=== PATIENT | male | born 1985 | race African-American/Black ===

== ENCOUNTER 2018-01-08 02:17 | Emergency (ER) | payer MEDICAID, SELFPAY ==
[2018-01-08 02:19] VITALS: BP 106/76; PULSE 90; RESP 18; TEMP 36.3; O2SAT 97; BMI 20.7
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
[2018-01-08] MEDS: Ziprasidone IM 20 MG/ML VIAL IM (02:40)
[2018-01-08 03:21] LABS: Bedside Glucose 109 mg/dL (70-110)
[2018-01-08 03:34] LABS: Absolute Lymphocyte Count 2.68 X10^3/ul (0.83-4.51); Absolute Neutrophil Count 3.4 X10^3/uL (2.0-7.7); Basophil# 0.03 X10^3/uL; Basophil% 0.5 % (0-1); Eosinophil# 0.03 X10^3/uL; Eosinophils% 0.5 % (0-5); Hematocrit 37.5 % (40-54); Hemoglobin 13.2 g/dl (13.0-16.5); Lymphocyte # 2.68 X10^3/ul (4.0); Lymphocyte % 40.5 % (19-41); Mean Corp Hgb Conc 35.2 g/gl (32-36); Mean Corpuscular Hgb 31.7 pg (27.0-32.0); Mean Corpuscular Volume 90.1 fL (80-94); Mean Platelet Vol. 10.1 fl (6.2-12.0); Monocyte# 0.41 X10^3/uL; Monocyte% 6.2 % (0-10); Neutrophil # 3.44 X10^3/uL (2.7-7.7); Platelet Count 249 K/mm3 (150-450); RBC Distribution Width CV 12.7 % (11.6-14.6); RBC Distribution Width SD 41.5 fl (35.1-43.9); Red Blood Count 4.16 M/mm3 (4.6-6.2); White Blood Count 6.6 K/mm3 (4.4-11.0)
[2018-01-08 03:36] LABS: POSITIVE COUNT NO; POSITIVE DIFFERENTIAL NO; POSITIVE MORPHOLOGY NO
[2018-01-08 03:37] LABS: Anion Gap 9 (5-15); BUN 9 mg/dL (7-18); BUN/Creat Ratio 9.1 RATIO (10-20); Calcium,Total 8.4 mg/dL (8.5-10.1); Chloride 107 mmol/L (98-107); Creatinine, Serum 0.99 mg/dL (0.70-1.30); EST Glomerular Filtration Rate 94 mL/min (>60); Est Glom Filt Rate - Afr Amer 114 mL/min (>60); Estimated Creatinine Clearance 98.61 ml/min; Glucose 106 mg/dL (74-106); Potassium 3.3 mmol/L (3.5-5.1); Prothrombin Time (Protime)PT. 12.7 SECONDS (11.7-14.9); Sodium Level 145 mmol/L (136-145)
[2018-01-08 03:38] LABS: Partial Thromboplast Time 25.6 Seconds (24.1-36.2)
[2018-01-08] MEDS: 0.9% Normal Saline 1,000 ML 999 ML IV (04:44)
[2018-01-08 05:04] VITALS: PULSE 90; RESP 13; O2SAT 97
--- NOTE | 2018-01-08 06:07 | ED.RN ---
lab called with critical lab results. etoh level 307. Dr. Taylor made aware. no new orders at this time
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
--- NOTE | 2018-01-08 10:59 | ED.RN ---
ATTEMPTED TO WAKE PT, PT WAS UNABLE TO BE AWAKENED. WILL CONTINUE TO MONITOR. RESPIRATORY RATE AND QUALITY APPEAR WNL. CALL LIGHT IN REACH, BED RAILS UP X2, BED IN LOWEST POSITION FOR SAFETY.
== END 2018-01-08 12:00 | disposition home or self-care (01) ==
PROVIDERS: Emergency Provider Emergency Medicine; Family Provider Family Medicine; PCP Family Medicine
DX: S10.93XA Contusion of unspecified part of neck, initial encounter (principal); F10.129 Alcohol abuse with intoxication, unspecified; Y90.8 Blood alcohol level of 240 mg/100 ml or more; Y04.2XXA Assault by strike against or bumped into by another person, initial encounter; Y93.89 Activity, other specified; Y92.89 Other specified places as the place of occurrence of the external cause; Y99.8 Other external cause status
CPT/HCPCS: 70360; 70491; 71045; 80048; 80320; 82962; 85025; 85610; 85730; 93005; 96372; 99284; J7030; A4216; G0480; J3486

== ENCOUNTER 2021-12-17 15:09 | Emergency (ER) | payer MEDICAID, SELFPAY ==
[2021-12-17 15:10] VITALS: BP 144/96; PULSE 79; RESP 15; TEMP 36.4; O2SAT 96
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
[2021-12-17] MEDS: Ondansetron ODT 4 MG Tablet PO (16:39)
[2021-12-17] MEDS: oxyCODONE 5 MG Tablet PO (16:39)
[2021-12-17] MEDS: Ibuprofen 600 MG Tablet PO (16:40)
[2021-12-17 16:48] VITALS: RESP 18
== END 2021-12-17 16:49 | disposition home or self-care (01) ==
PROVIDERS: Emergency Provider Emergency Medicine; PCP Family Medicine; Visit Provider Emergency Medicine
DX: S02.2XXA Fracture of nasal bones, initial encounter for closed fracture (principal); S02.31XA Fracture of orbital floor, right side, initial encounter for closed fracture; S09.90XA Unspecified injury of head, initial encounter; R51.9 Headache, unspecified; H11.31 Conjunctival hemorrhage, right eye; Z97.3 Presence of spectacles and contact lenses; Y04.8XXA Assault by other bodily force, initial encounter; W01.198A Fall on same level from slipping, tripping and stumbling with subsequent striking against other object, initial encounter
CPT/HCPCS: 70450; 70486; 72125; 99283

== ENCOUNTER 2023-06-16 17:37 | Emergency (ER) | payer SELFPAY ==
[2023-06-16 17:37] VITALS: BP 100/70; PULSE 86; RESP 18; TEMP 36.7; O2SAT 97; BMI 18.6
--- NOTE | 2023-06-16 17:55 | EDS_ITS ---
HPI <SAVAGE Gao - Last Filed: 06/16/23 19:50> History of Present Illness Chief Complaint: Cough Narrative Narrative: Patient is a 38-year-old male with no significant medical history presents to the emergency department with multiple complaints. Patient states for the last 8 days, he has been sick, he complains of coughing, body aches, intermittent fever and chills. Patient was tested for COVID, influenza as well as RSV which were negative. Patient states that he is getting worse and he is here for evaluation. He also states that on 30 May, he had unprotected sex and states that he did have some intermittent pain with urination. And he would like that checked as well. He denies any nausea or vomiting however does have some anorexia. PFSH <SAVAGE Gao - Last Filed: 06/16/23 19:50> FORMERLY [facility], [facility] Medical History no medical history Home Medications albuterol sulfate 90 mcg/actuation breath activated powder inhaler 2 inh inhalation Q6H PRN shortness of breath #1 ea 06/16/23 [Rx Last Taken Unknown] doxycycline hyclate 100 mg capsule 100 mg PO DAILY #14 caps 06/16/23 [Rx Last Taken Unknown] Allergy/AdvReac Type Severity Reaction Status Date / Time No Known Allergies Allergy Verified 06/16/23 17:37 Surgical History no surgical history Social History Smoking Status: Never smoker ROS <SAVAGE Gao - Last Filed: 06/16/23 19:50> ROS ED ROS Narrative Constitutional: Negative for weight loss, weakness. Positive fever and chills Eyes: Negative for vision loss, vision change, double vision ENT: Negative for any sore throat, ear pain, congestion Cardiovascular: Negative for any chest pain, tightness, palpitations Respiratory: Negative for any sputum production, hemoptysis, dyspnea on exertion, orthopnea. Positive cough, dyspnea Gastrointestinal: Negative for any abdominal pain, nausea, vomiting, diarrhea, constipation, blood in stool, blood in vomit : Negative for any urinary frequency, retention, blood in urine. Positive for dysuria Muscle skeletal: Negative for any arthralgias, neck pain. Positive for myalgias, back pain Neurological: Negative for any headache, syncope, paresthesias, dizziness Skin: Negative for any rashes, lumps, itching, abrasions, lacerations Psychiatric: Negative for any depression, anxiety, stress, suicidal ideation, homicidal ideation Hematologic: Negative for any easy bruising, excessive bruising, easy bleeding Allergies: Negative for any eczema, hives, rash EXAM <SAVAGE Gao - Last Filed: 06/16/23 19:50> Physical Exam Narrative Exam Narrative: Vital signs reviewed. HEET: Head normocephalic atraumatic, TMs clear bilaterally. Posterior pharynx is clear, moist mucous membranes. Nares clear bilaterally. Neck: Supple with no lymphadenopathy or tenderness. No signs of meningismus. Cardiac: Regular rate and rhythm no murmurs gallops or rubs, equal peripheral pulses bilaterally. Respiratory: Positive for right lower lobe crackles. No chest tenderness. Abdomen: Soft, nontender, nondistended. No abdominal bruit or pulsatile masses. No hepatosplenomegaly Extremities: No peripheral edema, no signs of gross trauma or deformity. Active full range of motion of all extremities. Neuro: Cranial nerves II through XII intact, no focal neurological deficits. Skin: Clean dry and intact with no rash, purpura, petechiae, vesicles or pustules. Backs/flank: No CVA tenderness, no midline spinal tenderness, no deformity. Psych: Normal mood and affect. No SI, HI or acute psychosis. : There is no lesions to the penile shaft, has no drainage from the penile meatus. Testicle exam was unremarkable. Const Vital Signs: 06/16/23 17:37 06/16/23 18:18 06/16/23 18:21 Temperature 98.1 F Temperature Source Temporal Pulse Rate 86 101 H Respiratory Rate 18 20 H Respiratory Pattern Normal Normal Blood Pressure 100/70 Blood Pressure Mean 80 Pulse Ox 97 Oxygen Delivery Method Room Air Positive well nourished and well developed General Appearance ED: well developed <Dr. Miguel Prado MD - Last Filed: 06/16/23 18:39> Physical Exam Const Vital Signs: 06/16/23 17:37 06/16/23 18:18 06/16/23 18:21 Temperature 98.1 F Temperature Source Temporal Pulse Rate 86 101 H Respiratory Rate 18 20 H Respiratory Pattern Normal Normal Blood Pressure 100/70 Blood Pressure Mean 80 Pulse Ox 97 Oxygen Delivery Method Room Air MDM <SAVAGE Gao - Last Filed: 06/16/23 19:50> MDM Lab Data Labs: Laboratory Results - last 24 hr 06/16/23 18:55 Urine Color Yellow Urine Clarity Clear Urine pH 6.5 Ur Specific [place] 1.015 Urine Protein 30 H Urine Glucose (UA) Normal Urine Ketones 5 H Urine Occult Blood Negative Urine Nitrite Negative Urine Bilirubin 1 H Urine Urobilinogen 1 H Ur Leukocyte Esterase 25 H Urine RBC 0 SEEN Urine WBC 0 SEEN Ur Squamous Epith Cells 0 SEEN Urine Bacteria 0 SEEN Urine Mucus 0 SEEN Radiography Diagnostic Testing: Clinical Impression(s) from Imaging Studies Chest X-Ray 06/16/23 18:45 IMPRESSION: Normal x-ray examination of the chest. Electronically Signed: Louis Escudero MD at 19:10 EST , Treatment and Re-Evaluation :: Patient appears to be in no obvious distress, vital signs are stable. Presenting to the emerged part for cough, congestion, generalized bodyaches. Patient was checked for RSV, COVID, influenza that was negative. Differential diagnose includes community-acquired pneumonia, other viral-like illness, reactive airway disease. Patient has no history of asthma. He does smoke 1/2 pack/day. Patient received a two-view chest x-ray as well as breathing treatments. All radiologic examinations were read, reviewed by the emergency department attending. From these reads, a plan of care will be put in place. Patient will receive GC/chlamydia PCR via urine. All radiologic examinations were read, reviewed by the emergency department attending. From these reads, a plan of care will be put in place. Patient's chest x-ray two-view showed normal x-ray of the chest. Patient's urinalysis was negative for any infection. Patient did have a GC/chlamydia sent PCR. Patient did have relief of symptoms with breathing treatments. At this time, patient be treated for doxycycline twice a day for 7 days, this will cover both respiratory infection as well as GC chlamydia, patient also receive 500 mg IM Rocephin. Patient received a call for any positive result. Patient is happy with the plan of care, patient was begin albuterol inhaler for prescription. Instructed return for any worsening symptoms. <Dr. Miguel Prado MD - Last Filed: 06/16/23 18:39> MDM MDM Narrative Medical decision making narrative: I have personally performed a face to face assessment of the patient and have reviewed the CHELLY Note. I performed a substantive portion of the visit including all aspects of the following. My carlin findings include: History: Patient presents with 2 complaints. Patient has been coughing and felt ill for about 8 days or so. He has a history of asthma. But he does not have an inhaler currently. He states he was wheezing more at the beginning and it is actually gotten better. Subjective fevers. He also complains of some burning with urination and sexual exposure unprotected about 2-2 and half weeks ago Exam: Frequent coughing. Dry. Mild wheeze. No rhonchi that I hear. Abdomen is benign. No active discharge. Medical Decision Making: Will be given a breathing treatment. Will send off chlamydia and GC. X-ray is pending. Lab Data Labs: Laboratory Results - last 24 hr 06/16/23 18:55 Urine Color Yellow Urine Clarity Clear Urine pH 6.5 Ur Specific [place] 1.015 Urine Protein 30 H Urine Glucose (UA) Normal Urine Ketones 5 H Urine Occult Blood Negative Urine Nitrite Negative Urine Bilirubin 1 H Urine Urobilinogen 1 H Ur Leukocyte Esterase 25 H Urine RBC 0 SEEN Urine WBC 0 SEEN Ur Squamous Epith Cells 0 SEEN Urine Bacteria 0 SEEN Urine Mucus 0 SEEN Radiography Diagnostic Testing: Clinical Impression(s) from Imaging Studies Chest X-Ray 06/16/23 18:45 IMPRESSION: Normal x-ray examination of the chest. Electronically Signed: Louis Escudero MD at 19:10 EST , Discharge Plan Triage Chief Complaint: Cough Other Complaint: Fever ED Midlevel Provider: Rigoberto Altamirano ED Provider: Miguel Prado Dx/Rx/DC Orders Clinical Impression: Exposure to STD, Bronchitis Instructions: ED Upper Resp Infec Abx Tx Prescriptions: New doxycycline hyclate 100 mg capsule 100 mg PO DAILY Qty: 14 0RF albuterol sulfate 90 mcg/actuation aerosol powdr breath activated 2 inh inhalation Q6H PRN (Reason: shortness of breath) Qty: 1 1RF Primary Care Provider: Gab Mandujano Referrals: Gab Mandujano MD [Primary Care Provider] - Activity Restrictions/Additional Instructions: Take antibiotics until finished. Use albuterol inhaler as needed. Disposition Disposition: Home, Self Care
--- OUTSIDE RECORDS SUMMARY | 2023-06-16 18:17 | XMS RPT_ITS | CCD ---
Author Name Unknown Address [address] [place] [address] Organization [facility] Care Team Providers Care Scanning Supervisor Name Role Phone Daisha Navarro Unavailable Unavailable Daisha Navarro Unavailable Unavailable Gab Mandujano MD Primary Care Provider [phone] Gab Madnujano MD Primary Care Provider [phone] Unavailable Primary Care Provider Unavailabl e Medications Current Medications Medication Drug Class(es) Dates Sig (Normalized) Sig (Original) albuterol 0.21 mg/ml inhalation solution (1 source) beta2-Adrenergic Agonist albuterol (ACCUNEB) 0.63 MG/3ML nebulizer solution Take 1 ampule by nebulization every 6 hours as needed for Wheezing 0 Active naproxen 500 mg oral tablet (1 source) Nonsteroidal Anti-inflammatory Drug Start: 05-14-2018 take 1 tablet by mouth twice daily at mealtime naproxen (NAPROSYN) 500 MG tablet Take 1 tablet by mouth 2 times daily (with meals) 14 tablet 0 05/14/2018 Active Completed/Discontinued Medications Medication Drug Class(es) Dates Sig (Normalized) Sig (Original) paraben-cetyl and stearyl alcohol-pro gl-SLS (CETAPHIL) topical cleanser (1 source) Start: 11-21-2020 paraben-cetyl and stearyl alcohol-pro gl-SLS (CETAPHIL) topical cleanser Indications: Allergic reaction, initial encounter Apply 1 application to affected area as needed. 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, uncomplicated] Onset: 02-19-2015 02-19-2015 Chronic Superficial injury; contusion (1 source) Contusion of right elbow; Translations: [Contusion of right elbow, initial encounter] Episodic Viral infection (1 source) Disease caused by 2019-nCoV; Translations: [COVID-19] Episodic Past or Other Problems Problem Classification Problem Date Documented Da te Episodic/Chronic Residual codes; unclassified (1 source) Tobacco user; Translations: [Tobacco use] Onset: 02-19-2015 02-19-2015 Episodic Residual codes; unclassified (1 source) Family history of ischemic heart disease; Translations: [Family history of ischemic heart disease and other diseases of the circulatory system] Onset: 02-19-2015 02-19-2015 Episodic Results Test Name Value Interpretation Reference Range Facil ity Vital Signs Date Time Vital Sign Value Performing Clinician Facility 06-13-2023 13:36-0500 Body temperature 100.9 [degF] Florencio Robles APRN.SPLITTER OPERATOR Work Phone: [facility] 06-13-2023 13:36-0500 Body weight 58.97 kg Florencio Robles APRN.SPLITTER OPERATOR Work Phone: [facility] 06-13-2023 13:36-0500 Diastolic blood pressure 86 mm[Hg] Florencio Robles APRN.SPLITTER OPERATOR Work Phone: [facility] 06-13-2023 13:36-0500 Heart rate 125 /min Florencio Robles APRN.SPLITTER OPERATOR Work Phone: [facility] 06-13-2023 13:36-0500 Respiratory rate 19 /min Florencio Robles APRN.SPLITTER OPERATOR Work Phone: [facility] 06-13-2023 13:36-0500 SaO2% (BldA) [Mass fraction] 91 % Florencio Robles APRN.SPLITTER OPERATOR Work Phone: [facility] 06-13-2023 13:36-0500 Systolic blood pressure 130 mm[Hg] Florencio Robles APRN.SPLITTER OPERATOR Work Phone: [facility] 05-24-2021 18:35-0500 Body height 177.8 cm Gab Mandujano MD Work Phone: [facility] 05-24-2021 18:34-0500 Body temperature 98.91 [degF] Gab Mandujano MD Work Phone: [employer] 05-24-2021 18:34-0500 Diastolic blood pressure 73 mm[Hg] Gab Mandujano MD Work Phone: [employer] 05-24-2021 18:34-0500 Heart rate 99 /min Gab Mandujano MD Work Phone: [employer] 05-24-2021 18:34-0500 Respiratory rate 18 /min Gab Mandujano MD Work Phone: [employer] 05-24-2021 18:34-0500 SaO2% (BldA) [Mass fraction] 97 % Gab Mandujano MD Work Phone: [employer] 05-24-2021 18:34-0500 Systolic blood pressure 122 mm[Hg] Gab Mandujano MD Work Phone: [employer] 12-03-2020 18:28-0400 Diastolic blood pressure 70 mm[Hg] Steve Adkins MD Work Phone: [facility] Work Phone: 12-03-2020 18:28-0400 Heart rate 80 /min Steve Adkins MD Work Phone: [facility] Work Phone: 12-03-2020 18:28-0400 Respiratory rate 14 /min Steve Adkins MD Work Phone: [facility] Work Phone: 12-03-2020 18:28-0400 SaO2% (BldA) [Mass fraction] 100 % Steve Adkins MD Work Phone: [facility] Work Phone: 12-03-2020 18:28-0400 Systolic blood pressure 120 mm[Hg] Steve Adkins MD Work Phone: [facility] Work Phone: 12-03-2020 16:54-0400 Body height 177.8 cm Steve Adkins MD Work Phone: [facility] Work Phone: 12-03-2020 16:54-0400 Body mass index (BMI) [Ratio] 19.8 kg/m2 Steve Adkins MD Work Phone: [facility] Work Phone: 12-03-2020 16:54-0400 Body temperature 98.8 [degF] Steve Adkins MD Work Phone: [facility] Work Phone: 12-03-2020 16:54-0400 Body weight 62.6 kg Steve Adkins MD Work Phone: [facility] Work Phone: Encounters Encounter Date Encounter Type Care Provider Facility Start: 06-13-2023 End: 06-13-2023 ambulatory Facility:[facility] Start: 06-13-2023 End: 06-13-2023 Patient encounter procedure Florencio Robles APRN.CNP Work Phone: [facility] Care Procedures Date Procedure Procedure Detail Performing Clinician Start: 05-24-2021 Iadna nos amplified probe tq each organism Wenceslao Olivo CNP Work Phone: Start: 12-03-2020 Radex elbow complete minimum 3 views Steve Adkins MD Work Phone: Start: 10-05-2011 Lipid 1996 panel - S black or Plasma Florencio Robles APRN.SPLITTER OPERATOR Work Phone: Plan of Treatment Date Care Activity Detail Author Start: 08-15-2028 Urine microalbumin profile DTaP,Tdap,Td Vaccine (5 - Td or Tdap) [facility] Start: 05-09-2023 Depression Assessment Depression Assessment [facility] Start: 01-07-2023 Influenza vaccination Influenza Vaccine (#1) [facility] Start: 2022 Lipid panel Lipid Screening [facility] Start: 01-07-2021 Influenza vaccination [facility] Start: 2006 Third diphtheria, tetanus and acellular pertussis (DTaP) vaccination TDAP (ADULT) [facility] Start: 2005 Hepatitis C screening Hepatitis C Screening [facility] Start: 2005 HIV screening HIV Screening [facility] Start: 2005 Tetanus vaccination TETANUS [facility] Start: 01-15-2005 Hepatitis B Vaccine (2 of 3 - 3-dose series) Hepatitis B Vaccine (2 of 3 - 3-dose series) [facility] Start: 2002 HIV screening HIV SCREENING DISCUSSION [facility] Start: 1999 COVID-19 Vaccine (1) COVID-19 Vaccine (1) [facility] Work Phone: Start: 1993 Pneumococcal vaccination Pneumococcal Vaccine (1 of 2 - PCV) [facility] Start: 1993 PNEUMOCOCCAL VACCINE SERIES (1 of 2 - PPSV23) PNEUMOCOCCAL VACCINE SERIES (1 of 2 - PPSV23) [facility] Start: 02-11-1992 COVID-19 VACCINE (1) COVID-19 VACCINE (1) [facility] Start: 1987 Covid-19 Vaccine (#1) Covid-19 Vaccine (#1) [facility] Start: 1987 Hepatitis C antibody, confirmatory test HEPATITIS C VIRUS SCREENING [facility] COVID & INFLUENZA A/ B & RSV NAAT, ROUTINE COVID & INFLUENZA A/B & RSV NAAT, ROUTINE Microbiology Routine Exposure to SARS-associated coronavirus 06/13/2023 1:59 PM [facility] Work Phone: NOVEL CORONAVIRUS NOVEL CORONAVI CHERRI Microbiology STAT 05/24/2021 6:58 PM [facility] Work Phone: Immunizations Immunization Date Immunization Notes Care Provider Barbra gonzalez 08-15-2018 tetanus toxoid, redu jennifer diphtheria toxoid, and acellular pertussis vaccine, adsorbed Florencio Robles PERSONAL TRAINER.SPLITTER OPERATOR Work Phone: [facility] 12-18-2004 hepatitis B vaccine, pediatric or pediatric/adolescent dosage Florencio PERSONAL TRAINER.SPLITTER OPERATOR Work Phone: [facility] 03-15-1991 diphtheria, tetanus toxoids and pertussis vaccine Florencio Robles PERSONAL TRAINER.SPLITTER OPERATOR Work Phone: [facility] 03-15-1991 haemophilus influenz ae type b vaccine, conjugate unspecified formulation Florencio Robles PERSONAL TRAINER.SPLITTER OPERATOR Work Phone: [facility] 03-15-1991 trivalent poliovirus vaccine, live, oral Florencio Robles PERSONAL TRAINER.SPLITTER OPERATOR Work Phone: [facility] 01-08-1988 diphtheria, tetanus toxoids and pertussis vaccine Florencio Robles PERSONAL TRAINER.SPLITTER OPERATOR Work Phone: [facility] 1987 diphtheria, tetanus toxoids and pertussis vaccine Florencio Robles PERSONAL TRAINER.SPLITTER OPERATOR Work Phone: [facility] Payers Date Payer Category Payer Unknown [employer] PPO POS [id number] 2021-Present [address] [place] [address] [id number] Unknown [id number] Social History Date Type Detail Facility Start: 12-03-2020 End: 06-13-2023 Tobacco smoking status NEIS Current every day smoker [facility] Work Phone: History of tobacco use Cigarette Smoker [facility] Start: 11-21-2020 End: 12-03-2020 Cigarettes smoked current (pack per day) - Reported [facility] Start: 12-03-2020 End: 06-13-2023 Tobacco use and exposure Never used [facility] Start: 12-03-2020 End: 06-13-2023 Alcohol intake Current drinker of alcohol (finding) [facility] Work Phone: Start: 10-20-2016 Alcohol Comment daily [facility] Work Phone: Start: 1985 Sex Assigned At Not on file [facility] Work Phone: Exposure to SARS-CoV -2 (event) Not sure [facility] Start: 02-15-2020 End: 11-21-2020 Alcohol Use Disorder Identification Test - Consumption [AUDIT-C] [facility] How often to you hav e a drink containing alcohol? 4 or more times a week [facility] Average Number of Drinks Not on file [facility] Progress note 06-13-2023 Note Date & Type Note Facility 06-13-2023 Note HNO ID: [id number] Author: FLORENCIO ROBLES APRN.SPLITTER OPERATOR Service: ? Author Type: Nurse Practitioner Type: Progress Notes Filed: 06/13/2023 14:26 Note Text: SUBJECTIVE: Sunny Wing is a 38 year old male. Who presents today with fatigue chills body aches cough sore throat n/v for I week. At home he felt warm. He has taken tylenol and cold medication. He just got back from [place] and was exposed to others who are sick. He would like covid flu and rsv testing. HPI No past medical history on file. No family history on file. Social History Tobacco Use Smoking status: Every Day Smokeless tobacco: Never Vaping Use Vaping Use: Never used Substance Use Topics Alcohol use: Yes Drug use: Yes Types: Cocaine, Crack Cocaine Comment: last used 3 days ago; clean 9 months prior ALLERGIES No Known Allergies Current Outpatient Medications Medication Sig Dispense Refill triamcinolone acetonide (KENALOG) 0.1 % cream Apply 1 application to affected area three times daily. (Patient not taking: Reported on 06/13/2023) 60 g 0 paraben-cetyl and stearyl alcohol-pro gl-SLS (CETAPHIL) topical cleanser Apply 1 application to affected area as needed. (Patient not taking: Reported on 06/13/2023) 118 mL 0 No current facility-administered medications for this visit. OBJECTIVE: BP 130/86 Pulse (!) 125 Temp (!) 38.3 ?C (100.9 ?F) Resp 19 Wt 59 kg (130 lb) SpO2 91% BMI 18.65 kg/m? ROS: All systems reviewed and are otherwise negative Constitutional: Well developed, well nourished, AANDO X3. ENT: Head is atraumatic, airway patent, mucosal membranes moist pink no exudate no AIRWORTHINESS SAFETY INSPECTOR [place] tm clear with no bulging or redness Neck: full ROM, no meningeal signs Cardiac: heart tones regular rate and rhythm Respiratory: lung CTA : no CVA tenderness MS: moves all extremities, no deformities noted Neuro: GCS 15 no focal deficits Skin: warm and dry with out rash, lesion or ecchymosis Psych: alert appropriate, speech clear Diagnostic testing: COVID, Influenza A, Influenza B and RSV testing performed and results will be complete in the next 24-72 hours. The patient will be notified of the results in My Chart. MDM: Patient presented to the [facility] for COVID, Influenza and RSV testing. Sunny Wing presents today with symptoms suspicious for likely viral upper respiratory infection. Differential includes bacterial pneumonia, sinusitis, allergic rhinitis, and bronchitis to name a few. At this time I do not suspect a serious underlying cardiopulmonary process. I considered, but think unlikely, dangerous causes of this patient?s symptoms to include ACS, CHF, COPD exacerbations, pneumonia or pneumothorax. Patient is nontoxic appearing and not in need of emergent medical intervention.Vital signs were evaluated and found to be within normal limits. We discussed the COVID results will be back in the next 1-2 days. In accordance with the CDC guidelines, Sunny Wing was instructed to quarantine, if indicated, based on symptoms and exposure. We have discussed over the counter medications to use for their symptoms. They may take Motrin and Tylenol for pain, body aches and fever. They will follow-up with their family doctor in the next 2-3 days. If symptoms worsen they will go straight to the emergency department for further evaluation and treatment. They voiced understanding of the plan of care and are in agreement. ASSESSMENT/PLAN: 1. Exposure to SARS-associated coronavirus - ICD9: V01.82, ICD10: Z20.828 - COVID AND INFLUENZA A/B AND RSV NAAT, ROUTINE Florencio Robles APRN.BROOKE [facility] History of Present illness Narrative 06-13-2023 Florencio Robles APRN.BROOKE - 06/13/2023 1:39 PM EST Note Date & Type Note Facility 06-13-2023 History of Presen t illness Narrative SUBJECTIVE: Sunny Wing is a 38 year old male. Who presents today with fatigue chills body aches cough sore throat n/v for I week. At home he felt warm. He has taken tylenol and cold medication. He just got back from [place] and was exposed to others who are sick. He would like covid flu and rsv testing. HPI No past medical history on file. No family history on file. Social History Tobacco Use Smoking status: Every Day Smokeless tobacco: Never Vaping Use Vaping Use: Never used Substance Use Topics Alcohol use: Yes Drug use: Yes Types: Cocaine, Crack Cocaine Comment: last used 3 days ago; clean 9 months prior ALLERGIES No Known Allergies Current Outpatient Medications Medication Sig Dispense Refill triamcinolone acetonide (KENALOG) 0.1 % cream Apply 1 application to affected area three times daily. (Patient not taking: Reported on 06/13/2023) 60 g 0 paraben-cetyl and stearyl alcohol-pro gl-SLS (CETAPHIL) topical cleanser Apply 1 application to affected area as needed. (Patient not taking: Reported on 06/13/2023) 118 mL 0 No current facility-administered medications for this visit. OBJECTIVE: BP 130/86 Pulse (!) 125 Temp (!) 38.3 C (100.9 F) Resp 19 Wt 59 kg (130 lb) SpO2 91% BMI 18.65 kg/m ROS: All systems reviewed and are otherwise negative Constitutional: Well developed, well nourished, A&O X3. ENT: Head is atraumatic, airway patent, mucosal membranes moist pink no exudate no AIRWORTHINESS SAFETY INSPECTOR [place] tm clear with no bulging or redness Neck: full ROM, no meningeal signs Cardiac: heart tones regular rate and rhythm Respiratory: lung CTA : no CVA tenderness MS: moves all extremities, no deformities noted Neuro: GCS 15 no focal deficits Skin: warm and dry with out rash, lesion or ecchymosis Psych: alert appropriate, speech clear Diagnostic testing: COVID, Influenza A, Influenza B and RSV testing performed and results will be complete in the next 24-72 hours. The patient will be notified of the results in My Chart. MDM: Patient presented to the [facility] for COVID, Influenza and RSV testing. Sunny Wing presents today with symptoms suspicious for likely viral upper respiratory infection. Differential includes bacterial pneumonia, sinusitis, allergic rhinitis, and bronchitis to name a few. At this time I do not suspect a serious underlying cardiopulmonary process. I considered, but think unlikely, dangerous causes of this patient s symptoms to include ACS, CHF, COPD exacerbations, pneumonia or pneumothorax. Patient is nontoxic appearing and not in need of emergent medical intervention.Vital signs were evaluated and found to be within normal limits. We discussed the COVID results will be back in the next 1-2 days. In accordance with the CDC guidelines, Sunny Wing was instructed to quarantine, if indicated, based on symptoms and exposure. We have discussed over the counter medications to use for their symptoms. They may take Motrin and Tylenol for pain, body aches and fever. They will follow-up with their family doctor in the next 2-3 days. If symptoms worsen they will go straight to the emergency department for further evaluation and treatment. They voiced understanding of the plan of care and are in agreement. ASSESSMENT/PLAN: 1. Exposure to SARS-associated coronavirus - ICD9: V01.82, ICD10: Z20.828 - COVID & INFLUENZA A/B & RSV NAAT, ROUTINE Florencio Robles APRN.SPLITTER OPERATOR documented in this encounter [facility] Discharge instructions 05-24-2021 InstructionsAttachments Note Date & Type Note Facility 05-24-2021 Hospital Discharg e instructions Wenceslao Olivo CNP - 05/24/2021 Due to your close exposure and her symptoms I will clinically diagnosed with:. Please isolate as instructed and use [id number] ibuprofen for symptom management. Increase your fluid intake over the next 3-5 days. The following attachments cannot be sent through Care Everywhere.Coronavirus Disease (COVID-19): Isolation (Comoran)documented in this encounter [facility] Evaluation note Note Date & Type Note Facility documented in this encounter [facility] Work Phone: Evaluation note Note Date & Type Note Facility documented in this encounter [facility] Evaluation note Note Date & Type Note Facility documented in this encounter [facility] Discharge instructions Attachments Note Date & Type Note Facility Hospital Discharge instructions The following attachments cannot be sent through Care Everywhere.Contusion ([place]an)documented in this encounter [facility] Work Phone: Summary Purpose Family History No Family History Records FoundNo Family History Records FoundNo Family History Records FoundNo Family History Records FoundNo Family History Records Found Advance Directives No Advanced Directives Records FoundNo Advanced Directives Records FoundNo Advanced Directives Records FoundNo Advanced Directives Records FoundNo Advanced Directives Records Found Additional Source Comments (unrecognized sect ion and content) No Status Records FoundNo Status Records FoundNo Status Records FoundNo Status Records FoundNo Status Records Found INFORMATION SOURCE (unrecogn ized section and content) DATE CREATED AUTHOR AUTHOR'S ORGANIZ ATION 01/16/2021 [facility] DATE CREATED AUTHOR AUTHOR'S ORGANIZ ATION 05/30/2021 [facility] DATE CREATED AUTHOR AUTHOR'S ORGANIZ ATION 06/29/2021 [facility] DATE CREATED AUTHOR AUTHOR'S ORGANIZ ATION 06/15/2023 [facility] Reason for Visit (unrecogniz ed section and content) Reason Comments Headache pt reports headache, fatigue, and sorethroat since Tuesday. Fatigue Sore Throat Reason Comments Nausea & Vomiting Cough, sore throat, fever, chills, body aches, bilateral eye pain, fatigue x 1 week Care Teams (unrecognized sec tion and content) Source Comments (unrecognize d section and content) In the event this informatio n is protected by the Federal Confidentiality of Alcohol and Drug Abuse Patient Records regulations: The Federal rules restrict any use of the information to criminally investigate or prosecute any alcohol or drug abuse patient.[facility] FOR RECORDS PERTAINING TO PATIENTS WHO ARE OR HAVE BEEN ENROLLED IN A CHEMICAL DEPENDENCY/SUBSTANCEABUSE PROGRAM, SOME INFORMATION MAY BE OMITTED. This clinical summary was aggregated from multiple sources. Caution should be exercised in using it in the provision of clinical care. This summary normalizes information from multiple sources, and as a consequence, information in this document may materially change the coding, format and clinical context of patient data. In addition, data may be omitted in some cases. CLINICAL DECISIONS SHOULD BE BASED ON THE PRIMARY CLINICAL RECORDS. [facility] [employer] [facility]. provides no warranty or guarantee of the accuracy or completeness of information in this document.
[2023-06-16 18:21] VITALS: PULSE 101; RESP 20
[2023-06-16] MEDS: Albuterol 2.5 MG/3 ML VIAL.NEB. INHALATION (18:21)
[2023-06-16] MEDS: Ipratropium/Albuterol Sulfate 3 ML AMPUL.NEB INHALATION (18:21)
--- NOTE | 2023-06-16 18:45 | RAD_ITS ---
STUDY: X-RAY CHEST REASON FOR EXAM: Male, 38 years old. cough TECHNIQUE: Frontal and lateral views of the chest. COMPARISON: January 08, 2018 FINDINGS: The lungs are clear and expanded. There is no demonstrated pleural abnormality. Normal size heart. Normal mediastinum and argenis. Normal visualized pulmonary arteries. Normal visualized aortic arch and descending thoracic aorta. Normal visualized thoracic spine. Normal visualized ribs, clavicles, and shoulders. There is no demonstrated abnormality of the visualized soft tissue structures of the upper abdomen. RAD/Chest PA and Lateral IMPRESSION: Normal x-ray examination of the chest. Electronically Signed: Louis Escudero MD at 19:10 EST ,
--- NOTE | 2023-06-16 18:53 | CPS ---
x1 Albuterol given to pt. in ER as well
[2023-06-16 19:07] LABS: Bacteria 0 SEEN /hpf (None Seen); Mucous, Urine 0 SEEN /hpf (<or=2+); Red Blood Cells-Urine 0 SEEN /hpf (0-5); Squamous Epithelial Cells - UA 0 SEEN /hpf (0-5); White Blood Cells 0 SEEN /hpf (0-5)
[2023-06-16 19:14] LABS: Color, Urine Yellow (Yellow); Glucose, Dipstick Normal (Normal); Ketone-Dipstick 5 mg/dl (Negative); Leukocyte Esterase-Dipstick 25 /ul (Negative); Nitrite-Dipstick Negative (Negative); Occult Blood-Urine Negative /ul (Negative); Protein-Dipstick 30 mg/dl (Negative); Specific Gravity, Urine 1.015 (1.002-1.030); Urine Clarity Clear (Clear); Urine Urobilinogen 1 mg/dl (Normal); Urine pH 6.5 (5.0 - 8.0)
[2023-06-16 19:18] LABS: Urine Bilirubin Dipstick 1 mg/dL (Negative)
[2023-06-16 19:30] VITALS: O2SAT 95
[2023-06-16] MEDS: Ceftriaxone 500 MG Vial IM (20:22)
[2023-06-16 20:27] VITALS: BP 117/74; PULSE 89; RESP 16; O2SAT 96
== END 2023-06-16 20:51 | disposition home or self-care (01) ==
PROVIDERS: Nurse Practitioner; Emergency Provider Emergency Medicine; PCP Family Medicine; Visit Provider Emergency Medicine
DX: Z20.2 Contact with and (suspected) exposure to infections with a predominantly sexual mode of transmission (principal); J40 Bronchitis, not specified as acute or chronic; R63.0 Anorexia; R30.0 Dysuria; F17.200 Nicotine dependence, unspecified, uncomplicated
CPT/HCPCS: 71046; 81001; 87491; 87591; 94640; 96372; 99283